=== PATIENT | male | born 1945 | race Caucasian/White ===

== ENCOUNTER 2023-07-20 19:25 | Outpatient (CLI) | payer OTHER, SELFPAY ==
--- NOTE | 2023-07-27 09:00 | W.PM.SLEEP ---
Sleep Study Details Details Interpreting Provider: Catarino Date of Sleep Study: 07/20/23 Sleep Study Details: STUDY TYPE:? Home unattended BMI:? Not recorded ORDERING PROVIDER:? Catarino INDICATION:? Concerns about sleep apnea ? SLEEP SUMMARY:? 494 minutes monitored RESPIRATORY SUMMARY:? AHI 5, supine 18, left laterally 0.4, right lateral 0 Low oxygen 84 4.4% of study oxygen less than 90% Snoring 17.2% PERIODIC LIMB MOVEMENTS OF SLEEP:? Not recorded during home study CARDIAC:? Range 46-95, mean 53.4 beats per minute IMPRESSION:? Mild obstructive sleep apnea overall. The patient has supine and left lateral position dependency and had no significant apnea in the right lateral position RECOMMENDATION: Treatment options include positional therapy with sleep in the right lateral position, AutoSet CPAP, dental appliance.
== END 2023-07-20 19:26 | disposition home or self-care (01) ==
LOC: SLEEP 19:26
PROVIDERS: Visit Provider Otolaryngology
DX: G47.33 Obstructive sleep apnea (adult) (pediatric) (principal)
CPT/HCPCS: 95806